=== PATIENT | female | born 1930 | race Native Hawaiian/Other Pacific Islander ===

== ENCOUNTER 2018-04-10 18:04 | Emergency (ER) | payer OTHER, MEDICARE ==
[~2018-04-10] VITALS: Ht 154.9 cm; Wt 55.3 kg
[~2018-04-10 18:04] MED LIST: ACID CONTROL MA20 MG PO; CARV12.5 PO; CEFD300C2 PO; CELEXA40 MG PO; CLON0.1T16 PO; COREG 6.25MG TAB PO; DONE5TAB PO; EQ MOTION SICKN25 MG PO; ESCI10TA PO; HEMOCYTE PLS PO; HYDR-3182 PO; LISI20TA11 PO; MEMA10TA2 PO; MONT10TA PO; MONTELUKAST SOD10 MG PO; OLANZAPINE10 M2 PO; RISP0.25 PO
[2018-04-10 18:35] LABS: PLATELET COUNT 194 K/uL (152-353)
[2018-04-10 18:51] LABS: POTASSIUM 3.4 mmol/L (3.6-5.2)
[2018-04-10 19:10] VITALS: BP 164/72; TEMP 97.5
[2018-04-10] MEDS ORDERED: OMEPRAZOLE20 M2 PO (22:11)
[2018-04-10] MEDS ORDERED: FIBER PO (22:20)
[2018-04-10] MEDS ORDERED: FLONASE AL50 MCG/ACT (22:23)
[2018-04-10] MEDS ORDERED: ESCITALOPRAM10 MG PO (22:27)
[2018-04-10] MEDS ORDERED: MOBIC7.5 M1 PO (22:33)
[2018-04-10] MEDS ORDERED: MULTIVITAMIN AD1 TAB PO (22:36)
[2018-04-10] MEDS ORDERED: RISP0.25 PO (22:47)
[2018-04-10] MEDS ORDERED: ELIQUIS5 MG PO (22:52)
[2018-04-10] MEDS ORDERED: NAMENDA10 MG PO (22:58)
[2018-04-10] MEDS ORDERED: DIPH25CA90 PO (23:03)
[2018-04-10] MEDS ORDERED: LIQUITEARS OP (23:09)
== END 2018-04-10 19:10 | disposition other institution (70) ==
LOC: ED 18:04
PROVIDERS: Family Medicine
DX: Z00.8 Encounter for other general examination (principal); F32.9 Major depressive disorder, single episode, unspecified
CPT/HCPCS: 36415; 80053; 85027; 93005; 99285